=== PATIENT | male | born 1995 | race African-American/Black ===

== ENCOUNTER 2020-04-05 10:14 | Inpatient (IN) | payer SELFPAY ==
[2020-04-05] VITALS (24 sets, daily range): BP systolic 100–132; BP diastolic 39–95; PULSE 109–146; RESP 22–59; TEMP 36.8–37.2; O2SAT 90–96; BMI 22.4
--- NOTE | ~2020-04-05 | XR_ITS ---
EXAMINATION: XR chest 1V portable DATE: 04/06/2020 06:27 INDICATION: Left pneumothorax. TECHNIQUE: A single frontal view of the chest was obtained. COMPARISON: Chest single view 04/05/2020 FINDINGS: There are airspace opacities in right lower lung zone, consistent with pneumonia. No pleura l effusion or pneumothorax. A left-sided chest tube is noted. Pneumomediastinum is noted. The heart s ize is normal. IMPRESSION: 1. No pneumothorax. Left-sided chest tube in expected position. 2. Stable pneumonia in right lower lung zone. 3. Persistent pneumomediastinum. Reviewed, dictated and finalized at location B. RINTENDENT STEVEDORING
--- NOTE | ~2020-04-05 | CT_ITS ---
EXAMINATION: CT brain wo con DATE: 04/05/2020 13:24 INDICATION: Altered mental status. TECHNIQUE: Computed tomography (CT) of the head was performed without intravenous contrast. The mA wa s adjusted according to patient size. Iterative reconstruction technique was employed. The dose-lengt h product was 605.33 mGy-cm. COMPARISON: None FINDINGS: There is no intracranial hemorrhage, acute infarction, or abnormal intracranial mass lesion . The ventricles are normal in size. The paranasal sinuses are clear. The orbits are normal. The mast oid air cells are normal. There is soft tissue gas in the neck and pharynx. IMPRESSION: 1. Normal brain. 2. Soft tissue gas in the neck and pharynx. Reviewed, dictated and finalized at location B. CE CASHIER
--- NOTE | ~2020-04-05 | US_ITS ---
EXAMINATION: US renal BI DATE: 04/06/2020 08:59 INDICATION: Acute kidney injury. TECHNIQUE: Multiple ultrasound grayscale images of the kidneys were obtained. COMPARISON: Chest CT 04/05/2020 FINDINGS: The right kidney measures 10.3 x 4.5 x 5.1 cm. The left kidney measures 11.3 x 5.0 x 4.6 cm. The kidn eys demonstrate increased parenchymal echogenicity. There is no hydronephrosis. The bladder is normal . IMPRESSION: 1. Normal kidney sizes. No hydronephrosis. 2. Increased renal parenchymal echogenicity, consistent with nonspecific nephropathy. Reviewed, dictated and finalized at location B. ELLATION CLERK IMPRESSION: 1. Normal kidney sizes. No hydronephrosis. 2. Increased renal parenchymal echogenicity, consistent with nonspecific nephro joie.
--- NOTE | ~2020-04-05 | CT_ITS ---
EXAMINATION:CT chest wo con DATE: 04/05/2020 13:25 INDICATION: Shortness of breath. TECHNIQUE: Computed tomography (CT) of the chest was performed without intravenous contrast. Automate d exposure control and iterative reconstruction technique were employed. The dose-length product (DLP ) was 218.07 mGy-cm. COMPARISON: None. FINDINGS: There are tree-in-bud opacities and centrilobular nodules in all right lung lobes. There ar e also airspace opacities in right middle lobe and right lower lobe. These findings are consistent wi th pneumonia. There is a small left pneumothorax. Pneumomediastinum is noted. There is extension of s oft tissue gas into the neck and epidural space and posterior right chest wall. There is flattening o f the right ventricle of the heart. No pericardial effusion. The bones are unremarkable. IMPRESSION: 1. Small left pneumothorax. 2. Pneumomediastinum. 3. Flattening of right ventricle of the heart suggesting tension from the pneumothorax and pneumomedi astinum. 4. Right lung pneumonia. 5. I discussed this case with Dr. Layton. Reviewed, dictated and finalized at location B. WELDER APPRENTICE IMPRESSION: 1. Small left pneumothorax. 2. Pneumomediastinum. 3. Flattening of right ventricle of the heart suggesting tension from the pneum othorax and pneumomediastinum. 4. Right lung pneumonia. 5. I discussed this case with Dr. Layton.
--- NOTE | ~2020-04-05 | XR_ITS ---
EXAMINATION: XR chest 1V portable DATE: 04/07/2020 02:56 INDICATION: Difficulty breathing TECHNIQUE: frontal view of the chest was obtained. COMPARISON: Chest radiograph dated 04/06/2020 FINDINGS: Apically directed left chest tube projects over the lateral left lung. No pneumothorax. Minimal pneum omediastinum at the aortic arch, minimal soft tissue gas at the neck and small amount of pneumoperito neum below the left hemidiaphragm. Progression of airspace opacities in the right lower lung zone con sistent with pneumonia. Likely small right pleural effusion. The cardiomediastinal silhouette is norm al. IMPRESSION: 1. Increasing opacities in the right lower lung zone consistent with pneumonia. 2. Unchanged left chest tube with no residual pneumothorax. 3. Small amount of pneumoperitoneum and minimal soft tissue gas in the mediastinum and neck likely re lated to the prior pneumothorax. Reviewed, dictated and finalized at location A. MO TENDER IMPRESSION: 1. Increasing opacities in the right lower lung zone consistent with pneumonia. 2. Unchanged left chest tube with no residual pneumothorax. 3. Small amount of pneumoperitoneum and minimal soft tissue gas in the mediasti num and neck likely related to the prior pneumothorax.
--- NOTE | ~2020-04-05 | XR_ITS ---
EXAMINATION: XR chest-chest tube insert/pos DATE: 04/05/2020 15:04 INDICATION: Left pneumothorax status post chest tube placement. TECHNIQUE: A single frontal view of the chest was obtained. COMPARISON: Chest CT 04/05/2020 FINDINGS: There are airspace opacities and nodules in right mid and lower lung zones, consistent with pneumonia. There is a small left pneumothorax. There is a left-sided chest tube in expected position . No pleural effusion. The heart size is normal. Pneumomediastinum is noted. IMPRESSION: 1. Small left pneumothorax with left-sided chest tube in expected position. 2. Pneumomediastinum. 3. Airspace opacities and nodules in right mid and lower lung zones, consistent with pneumonia. Reviewed, dictated and finalized at location B. CTOR OF MATERIALS MANAGEMENT
--- NOTE | ~2020-04-05 | XR_ITS ---
EXAMINATION: XR chest 2V DATE: 04/07/2020 09:02 INDICATION: Left pneumothorax TECHNIQUE: frontal and lateral views of the chest were obtained. COMPARISON: Chest radiograph dated 04/06/2020 FINDINGS: Again seen is apically directed chest tube projecting over the lateral left lung. No residual pneumot horax. There is a very minimal amount of pneumomediastinum at the aortic arch, minimal soft tissue ga s at the left neck and a small amount of pneumoperitoneum below the diaphragm. Patchy airspace opacit ies at the right lower lung zone consistent with pneumonia. No pleural effusion or right-sided pneumo thorax. Cardiomediastinal silhouette is normal. IMPRESSION: 1. Opacities in the right lower lung zone consistent with pneumonia. 2. No residual left pneumothorax with left chest tube in unchanged position. 3. Small amount of pneumomediastinum, soft tissue gas at the neck and small amount of pneumoperitoneu m, all likely related to the earlier left pneumothorax. Reviewed, dictated and finalized at location A. ALE SECURITY OFFICER IMPRESSION: 1. Opacities in the right lower lung zone consistent with pneumonia. 2. No residual left pneumothorax with left chest tube in unchanged position. 3. Small amount of pneumomediastinum, soft tissue gas at the neck and small himanshu unt of pneumoperitoneum, all likely related to the earlier left pneumothorax.
--- NOTE | 2020-04-05 10:21 | ECG_ITS ---
Measurements Intervals [place] Rate: 141 P: 76 MS: 96 QRS: 66 QRSD: 75 T: 17 QT: 328 QTc: 503 Interpretive Statements SINUS TACHYCARDIA WITH SHORT MS INTERVAL, POSSIBLE ATRIAL FLUTTER ST-T WAVE ABNORMALITY IN INFERIOR LEADS- CONSIDER ISCHEMIA ABNORMAL ECG Electronically Signed On 04-05-2020 10:38:48 HAULING CONTRACTOR by Joao Rg D.O.
--- NOTE | 2020-04-05 10:27 | ED.GENADULT ---
HPI - General Adult General Chief complaint: Unspecified Stated complaint: withdrawals Time Seen by Provider: 04/05/20 10:21 Source: patient Mode of arrival: ambulatory Limitations: no limitations History of Present Illness HPI narrative: Patient is a 24-year-old male brought in from residential due to nausea vomiting and not feeling well . Patient is a very poor historian due to being uncooperative. Related Data Home Medications Medication Instructions Recorded Confirmed No Home Medications 04/05/20 04/05/20 Allergies Allergy/AdvReac Type Severity Reaction Status Date / Time No Known Allergies Allergy Verified 04/05/20 10:29 Review of Systems Review of Systems: All systems reviewed & are unremarkable except as noted in HPI and below ROS unobtainable: Yes other (Unable to obtain due to patient being uncooperative) Exam Const: General: acute distress moderate and ill appearing Orientation/consciousness: oriented to person Limitations: other limitations (Uncooperative) HENMT: Head: normal to inspection, normocephalic and atraumatic Ears: hearing grossly normal bilaterally, TM normal on the right and TM normal on the left General nose exam: Normal external nose present, Normal nares present and No nasal discharge present Face and sinus: normal facial exam Mouth: Yes Normal oral and palatal mucosa present, Yes lip normal, Yes tongue normal and Yes oropharynx normal Throat: posterior oropharynx normal, tonsils normal and uvula midline Eyes: General: appearance normal, both eyes and all related structures Pupils: Equal, round and reactive pupils present EOM: EOMs intact bilaterally Neck: Neck: normal visual inspection, full ROM, no lymphadenopathy and no meningeal signs Chest: Chest palpation & inspection: normal inspection of the chest Resp: Effort & Inspection: respiratory distress (Moderate) and tachypneic Auscultation: no crackles, rales, no rhonchi and no wheezes Cardio: Rhythm: regular rhythm GI: Inspection: normal to inspection GI Palp: No abdominal tenderness, Yes Soft to palpation, No Tenderness to palpation present (GI), No Guarding due to palpation present (GI), No Rigid due to palpation and No Rebound tenderness present Auscultation: normal bowel sounds : General: Yes no CVA tenderness Back/Spine/Pelvis: Back: no CVA tenderness Skin: General skin exam: normal color, no rashes or lesions noted, elasticity normal and turgor normal Neuro: General: tone normal, moves all extremities and no meningeal signs Cranial nerves: Yes Equal, round and reactive pupils present Speech: No Abnormal speech present Sensory Exam: No Sensory deficit (Neuro) Other: Unable to fully assess a full neuro exam patient's not being cooperative Extrem: General: normal to inspection, full ROM and capillary refill normal Psych: Appearance: poorly kempt and other Attitude: Refuses to answer (attititude/behavior) Course Course Emergency Course: Ordered for lactic acid blood cultures, patient refusing to be stuck again. Patient refused lab draw. After chest tube looks place at 2:30 PM patient reexamined at 3 PM states that he is feeling better Vital Signs Vital signs: Vital Signs Temperature 36.8 C 04/05/20 10:15 Pulse Rate 140 H 04/05/20 10:15 Respiratory Rate 40 H 04/05/20 10:15 Blood Pressure 109/81 04/05/20 10:15 Temperature 36.8 C 04/05/20 10:15 Pulse Rate 140 H 04/05/20 10:15 Respiratory Rate 40 H 04/05/20 10:15 Blood Pressure 109/81 04/05/20 10:15 Procedures Chest Tube Chest Tube 1: Chest Tube Date: 04/05/20 Chest Tube Time: 15:05 Chest Tube Location: left, anterior axillary line and fifth interspace Tube Type: quik thal Chest Tube Prep: Yes betadine prep Anesthetic: lidocaine 1% Amount of anesthesia used (mL): 8 Procedure: seldinger technique Post Procedure: sutured to skin, sterile dressing applied and connected to [facility] V
[2020-04-05] MEDS: LACTATED RINGERS 1,000 ML 999 ML IV CONT (10:40)
[2020-04-05] MEDS: ONDANSETRON INJ 4 MG/2 ML VIAL IV PUSH (10:41)
[2020-04-05] MEDS: SODIUM CHLORIDE 0.9% IV 1,000 ML 999 ML IV CONT ×3 (10:43→10:44)
[2020-04-05 10:53] LABS: Basophils Absolute Auto 0.1 K/mm3 (0.0-0.1); Basophils Percent Auto 0.4 % (0.2-1.2); Eosinophils Absolute Auto 0.2 K/mm3 (0-0.3); Eosinophils Percent Auto 1.4 % (0-4.4); Hematocrit 58.1 % (42.0-52.0); Immature Granulocyte Absolute 0.08 K/mm3 (0.00-0.031); Immature Granulocyte Percent A 0.5 % (0-0.5); Lymphocytes Absolute Auto 1.94 K/mm3 (0.9-3.2); Lymphocytes Percent Auto 11.5 % (18.3-44.2); Mean Corpuscular HGB Conc 32.7 g/dl (32-36); Mean Corpuscular Hemoglobin 30.9 pg (26-34); Mean Corpuscular Volume 94.5 fl (80-100); Mean Platelet Volume 11.2 fl (7.4-10.4); Monocytes Absolute Auto 1.7 K/mm3 (0.1-0.6); Monocytes Percent Auto 10.1 % (2.6-8.5); Neutrophils Absolute Auto 12.9 K/mm3 (1.3-6.7); Neutrophils Percent Auto 76.1 % (45.5-73.1); Platelet Count Result 384 k/mm3 (150-375); Red Blood Count 6.15 M/mm3 (4.6-6.20); White Blood Count 16.9 K/mm3 (4.5-10.0)
[2020-04-05 11:10] LABS: Alanine Aminotransferase 40 U/L (4-50); Albumin Level 4.9 g/dL (3.5-5.1); Alkaline Phosphatase 70 U/L (38-126); Anion Gap 23 mmol/L (8-16); Aspartate Amino Transferase 42 U/L (17-59); Bilirubin,Total 1.3 mg/dL (0.2-1.3); Blood Urea Nitrogen > 120 mg/dL (9-20); Calcium 9.8 mg/dL (8.4-10.2); Carbon Dioxide 25 mmol/L (22-30); Chloride 113 mmol/L (98-107); Estimated CRCL calculation 23 ml/min; Estimated Glomerular Filt Rate 22; Glucose 204 mg/dL (75-110); Potassium 4.4 mmol/L (3.4-5.0); Sodium 161 mmol/L (137-145)
[2020-04-05 11:15] LABS: CRP 2.3 mg/dL (<1.0)
[2020-04-05 11:32] LABS: Troponin I 0.236 ng/mL (0.000-0.034)
[2020-04-05 11:43] LABS: Base Excess ABG 0.3 mEq/l (+/-2.0); Carboxyhemoglobin 0.5 % THb (0-2.0); HCO3 ABG 22.8 mEq/l (22.0-26.0); Oxygen Saturation ABG 93.6 % (95.0-100.0); PCO2 ABG 33.4 mmHg (35.0-45.0); Total Hemoglobin 16.9 g/dL (12.0-18.0); pH ABG 7.452 (7.350-7.450)
[2020-04-05 11:44] LABS: Fractional Inspired Oxygen 21 %; Methemoglobin ABG 0.3 %THb (0-1.5); Modified Allen's Test Pass; Oxyhemoglobin 90.7 % THb (90.0-100.0); Reduced Hemoglobin 8.5 %THb (0-5.0); Site Drawn RIGHT RADIAL
--- NOTE | 2020-04-05 12:38 | PC.NURSE ---
Pt refusing to let this RN attempt to draw blood at this time.
--- NOTE | 2020-04-05 12:39 | PC.NURSE ---
Dr. Layton aware of pt refusal
[2020-04-05 13:12] LABS: Alveolar/Arterial O2 Gradient 45.7 mmHg; Oxygen Content ABG 21.5 %vol (16.0-22.0); PO2 FiO2 Ratio Arterial Blood 3.05 %
[2020-04-05] MEDS: LORazepam INJ (*CRX) 2 MG/ML VIAL 1 MG IV PUSH (14:19)
[2020-04-05] MEDS: HYDROmorphone HCL INJ (*CRX) 1 MG/ML SYR IV PUSH (14:20)
[2020-04-05] MEDS: HYDROmorphone HCL INJ (*CRX) 1 MG/ML SYR 0.5 MG IV PUSH (16:06)
--- NOTE | 2020-04-05 16:15 | PC.NURSE ---
pt/ptt and lactic obtained and sent.
[2020-04-05 16:37] LABS: INR 1.2; Partial Thromboplastin Time 26.2 SECONDS (22.3-36.8); Prothrombin Time 16.2 Seconds (11.1-14.7)
[2020-04-05 16:38] LABS: Lactic Acid Reflex 2.1 mmol/L (0.7-2.1)
--- NOTE | 2020-04-05 17:27 | ADMGEN ---
This patient, Andrew Maravilla, was admitted to Intensive Care Unit-2. Patient/family oriented to hospital policies and general routines including ID bracelet, bed and alarms, visiting hours, pain management, procedures, bathroom and other care routines, personal items, smoking policy, room service/diet, and visiting hours. Information on how to activate the Rapid Response Team has been discussed. Patient/Family are encouraged to report perceived risks to care and to ask questions if they do not understand what they are told or what they should do.
[2020-04-05] MEDS: LACTATED RINGERS 1,000 ML 150 ML IV CONT (17:45)
--- NOTE | 2020-04-05 18:06 | PC.NURSE ---
Patient ok for mother to be updated. Spoke with mother about plan of care. Aware of visiting policy and unit phone number.
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
[2020-04-05 19:25] LABS: Reflex Lactic Acid Yes or No Add Lactic
[2020-04-05 20:53] LABS: Anion Gap 13 mmol/L (8-16); Blood Urea Nitrogen 94 mg/dL (9-20); Calcium 8.4 mg/dL (8.4-10.2); Carbon Dioxide 28 mmol/L (22-30); Chloride 116 mmol/L (98-107); Estimated CRCL calculation 31 ml/min; Estimated Glomerular Filt Rate 37; Glucose 116 mg/dL (75-110); Potassium 4.2 mmol/L (3.4-5.0); Sodium 157 mmol/L (137-145)
[2020-04-05 20:56] LABS: Albumin Level 4.2 g/dL (3.5-5.1); Alkaline Phosphatase 50 U/L (38-126); Anion Gap 12 mmol/L (8-16); Aspartate Amino Transferase 41 U/L (17-59); Bilirubin,Total 1.1 mg/dL (0.2-1.3); Blood Urea Nitrogen 93 mg/dL (9-20); CRP 4.9 mg/dL (<1.0); Calcium 8.3 mg/dL (8.4-10.2); Carbon Dioxide 27 mmol/L (22-30); Chloride 117 mmol/L (98-107); Creatine Kinase 1133 U/L (55-170); Estimated CRCL calculation 31 ml/min; Estimated Glomerular Filt Rate 37; Glucose 115 mg/dL (75-110); Magnesium 3.8 mg/dL (1.6-2.3); Phosphorus 4.4 mg/dL (2.5-4.5); Potassium 4.2 mmol/L (3.4-5.0); Sodium 156 mmol/L (137-145)
[2020-04-05 21:01] LABS: Alanine Aminotransferase 32 U/L (4-50); Complement C3 123 mg/dL (88-165)
[2020-04-05] MEDS: IPRATROPIUM BR 0.02% INH SOLN 0.5 MG/2.5 ML VIAL INHALATION (21:12)
[2020-04-05 21:18] LABS: Erythrocyte Sedimentation Rate 27 mm/hr (0-20)
[2020-04-05 21:32] LABS: HIV 1/2 Ab P24 Ag Result Negative (Negative)
[2020-04-05 22:34] LABS: Hepatitis B Surface Antigen Negative (Negative)
[2020-04-05 22:39] LABS: Hepatitis B Core IgM Result Negative (Negative)
[2020-04-05 22:52] LABS: Hepatitis B Surface Anti Res Negative; Hepatitis C Virus Antibody Negative (Negative)
[2020-04-06] VITALS (16 sets, daily range): BP systolic 122–141; BP diastolic 55–88; PULSE 70–108; RESP 20–40; TEMP 36.8–37.4; O2SAT 97–100; BMI 22.4
--- NOTE | 2020-04-06 | ECHO_ITS ---
Patient Info Name: Andrew Maravilla Age: 24 years : 1995 Gender: Male Ht: 62 in Wt: 123 lbs BSA: 1.57 m2 HR: 90 bpm BP: 124 / 87 mmHg Heart Rhythm: Sinus Rhythm Technical Quality: Good Exam Date: 04/06/2020 12:01 PM Exam Location: [facility] Pul[facility] Patient Status: Inpatient Admit Date: 04/05/2020 Staff Ordering Physician: Khris Campos MD Public Safety Officer: Tahir Valentin RDCS Attending Provider: Khris Campos MD Exam Type: CA echo doppler color flow Study Info Indications I47.2 - Ventricular tachycardia Complete two-dimensional, color flow and Doppler transthoracic echocardiogram is performed. History/Risk Factors Right pneumothorax; tachycardia, fentanyl withdrawal, elevated trops. Summary 1. Complete two-dimensional, color flow and Doppler transthoracic echocardiogram is performed. 2. Left ventricular chamber size, wall thickness, systolic and diastolic function are normal with no regional wall motion abnormalities with an estimated ejection fraction of >70%. 3. No significant valve disease. 4. Normal sinus rhythm. Left Ventricle Left ventricular chamber size, wall thickness, systolic and diastolic function are normal with no regional wall motion abnormalities with an estimated ejection fraction of >70%. Left ventricular chamber dimension is normal. Left ventricular systolic function is hyperdynamic, estimated at >70%. There is no increased left ventricular wall thickness. Left ventricular septal wall motion is normal. The left ventricular diastolic function is normal. Right Ventricle Right ventricular chamber dimension is normal. Right ventricular systolic function is normal. Left Atria Left atrial chamber dimension is normal. Right Atria Right atrial chamber dimension is normal. Aortic Valve The aortic valve is trileaflet. There is no aortic valve sclerosis. There is no aortic valve stenosis. There is no aortic valve regurgitation. Pulmonic Valve The pulmonic valve is normal. There is no pulmonic valve stenosis. There is no pulmonic regurgitation. Mitral Valve The mitral valve has normal leaflets. There is no mitral valve stenosis. There is trace mitral valve regurgitation. Tricuspid Valve The tricuspid valve leaflets are normal. There is no significant tricuspid valve stenosis. There is trace tricuspid valve regurgitation. No pulmonary hypertension, estimated pulmonary arterial systolic pressure is 38 mmHg. Pericardium/Pleural The pericardium appears normal. There is no pericardial effusion. Inferior Vena Cava Normal inferior vena cava with >50% collapse upon inspiration consistent with Empty right atrial pressure, 5 mmHg. Aorta The aortic root size at the sinus of Valsalva is normal. The prox ascending aorta size is normal. Left Ventricular Outflow Tract Name Value Normal LVOT 2D LVOT Diameter 2.1 cm LVOT Doppler LVOT Peak Gradient 12 mmHg LVOT Mean Gradient 6 mmHg LVOT VTI 24 cm LVOT VTI/AV VTI Ratio 0.8
[2020-04-06] MEDS: IPRATROPIUM BR 0.02% INH SOLN 0.5 MG/2.5 ML VIAL INHALATION ×4 (01:30→20:10)
[2020-04-06 04:37] LABS: Basophils Percent Auto 0.1 % (0.2-1.2); Hematocrit 39.6 % (42.0-52.0); Immature Granulocyte Absolute 0.04 K/mm3 (0.00-0.031); Immature Granulocyte Percent A 0.3 % (0-0.5); Lymphocytes Absolute Auto 2.26 K/mm3 (0.9-3.2); Mean Corpuscular HGB Conc 32.8 g/dl (32-36); Mean Corpuscular Hemoglobin 30.2 pg (26-34); Mean Corpuscular Volume 92.1 fl (80-100); Mean Platelet Volume 10.9 fl (7.4-10.4); Monocytes Absolute Auto 1.4 K/mm3 (0.1-0.6); Neutrophils Absolute Auto 10.4 K/mm3 (1.3-6.7); Neutrophils Percent Auto 73.6 % (45.5-73.1); Platelet Count Result 253 k/mm3 (150-375); Red Cell Distribution Width 13.5 % (11.5-14.5); White Blood Count 14.1 K/mm3 (4.5-10.0)
[2020-04-06 04:57] LABS: Lactic Acid Reflex 1.3 mmol/L (0.7-2.1)
[2020-04-06 05:02] LABS: Alanine Aminotransferase 25 U/L (4-50); Albumin Level 3.4 g/dL (3.5-5.1); Alkaline Phosphatase 48 U/L (38-126); Anion Gap 8 mmol/L (8-16); Aspartate Amino Transferase 39 U/L (17-59); Bilirubin,Total 0.9 mg/dL (0.2-1.3); Blood Urea Nitrogen 65 mg/dL (9-20); Calcium 7.9 mg/dL (8.4-10.2); Carbon Dioxide 29 mmol/L (22-30); Chloride 112 mmol/L (98-107); Estimated CRCL calculation 40 ml/min; Estimated Glomerular Filt Rate 50; Glucose 123 mg/dL (75-110); Magnesium 3.3 mg/dL (1.6-2.3); Potassium 3.6 mmol/L (3.4-5.0); Sodium 149 mmol/L (137-145)
[2020-04-06] MEDS: SODIUM CHLORIDE 0.9% IV 1,000 ML 150 ML IV CONT (06:57)
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
--- NOTE | 2020-04-06 10:49 | ECG_ITS ---
Measurements Intervals [place] Rate: 99 P: 63 HI: 108 QRS: 79 QRSD: 85 T: -78 QT: 414 QTc: 532 Interpretive Statements SINUS RHYTHM WITH SHORT HI INTERVAL ST-T WAVE ABNORMALITY IN ANT/INF LEADS- CONSIDER ISCHEMIA ABNORMAL ECG Electronically Signed On 04-06-2020 13:15:59 NITRIC ACID CONCENTRATOR OPERATOR by Joao Rg D.O.
[2020-04-06] MEDS: SODIUM CHLORIDE 0.9% IV 1,000 ML 100 ML IV CONT ×2 (10:51→17:41)
--- NOTE | 2020-04-06 10:57 | PM.CNGS ---
Assessment and Plan Assessment and plan (1) Pneumothorax on left: Code(s): J93.9 - Pneumothorax, unspecified Status: Acute Assessment and Plan: Small left pneumothorax noted on CT chest on admission. CT also suggested evidence for tension pneumothorax. Chest tube placed in the ER and was put to wall suction. Repeat chest x-ray done today on wall suction, which showed no pneumothorax with chest tube in position. We will put the chest tube to water seal today and plan to repeat a chest x-ray tomorrow morning. I will also initiate incentive spirometry while awake. The cause of the pneumothorax is unclear, but potentially could be caused by the trauma during his arrest. There is no evidence of fractured ribs on any imaging. I discussed the plan of care with the patient and answered all of his questions. Thank you for allowing us to see the patient in consultation and we will continue to follow along with you. (2) Pneumonia: Qualifiers: Laterality: unspecified laterality Lung location: unspecified part of lung Pneumonia type: due to unspecified organism Qualified Code(s): J18.9 - Pneumonia, unspecified organism Code(s): J18.9 - Pneumonia, unspecified organism Status: Acute Assessment and Plan: Currently on Azithromycin/Ceftriaxone IV for treatment. Leukocytosis noted and improved some today. Management per Hospitalist. (3) Sepsis: Qualifiers: Acute renal failure type: unspecified Sepsis acute organ dysfunction status: with acute organ dysfunction Sepsis type: sepsis due to unspecified organism Severe sepsis acute organ dysfunction type: acute renal failure Severe sepsis shock status: unspecified Qualified Code(s): A41.9 - Sepsis, unspecified organism; R65.20 - Severe sepsis without septic shock; N17.9 - Acute kidney failure, unspecified Code(s): A41.9 - Sepsis, unspecified organism Status: Acute Assessment and Plan: Criteria met with tachycardia, tachypnea, and leukocytosis on admission in the setting of pneumonia. On IV antibiotics. Lactic acid normal. IV fluid resuscitation in ER and currently on IV fluids. Blood cultures pending. (4) Acute renal failure: Qualifiers: Acute renal failure type: unspecified Qualified Code(s): N17.9 - Acute kidney failure, unspecified Code(s): N17.9 - Acute kidney failure, unspecified Status: Acute Assessment and Plan: Creatinine 4.1 on admission. Patient appeared dehydrated. Creatinine improving to 2.0 today. Still receiving IV fluids. Monitor labs. Management per Hospitalist. (5) Hypernatremia: Code(s): E87.0 - Hyperosmolality and hypernatremia Status: Acute Assessment and Plan: Improving, sodium was 161 on admission and down to 149 today. Also could be due to dehydration. Management per Hospitalist. . (6) Narcotic addiction: Code(s): F11.20 - Opioid dependence, uncomplicated Status: Chronic Assessment and Plan: Discussed cessation with patient. He wishes to quit using. (7) Tobacco abuse: Code(s): Z72.0 - Tobacco use Status: Acute Assessment and Plan: Discussed the importance of cessation as well and that continued tobacco abuse can increase risk of recurrence of pneumothorax. Patient states he is going to try to quit smoking. Additional Plan I discussed the patient's case and plan of care with Dr. Roland today. History of Present Illness Consult details Consult date: 04/06/20 Reason for consult: chest tube (Left pneumothorax) Requesting physician: Shadi Layton MD Narrative: This is a 24-year-old male who presented to the emergency department from care home with complaints of nausea and vomiting. The patient apparently had complaints of mild shortness of breath and a productive cough starting about one month ago. He reports that he was using Fentanyl at that time and had not paid any attention to the symptoms because he
[2020-04-06 11:32] LABS: Add Urine Microscopic? YES; Appearance Urine Clear (Clear); Bacteria Urine Trace /hpf; Bilirubin Urine Negative (Negative); Blood Urine Negative (Negative); Color Urine Yellow (Yellow); Glucose Urine UA Negative (Negative); Ketones Urine Negative (Negative); Leukocyte Esterase Ur Negative LEU/UL (Negative); Nitrate Urine Negative (Negative); Protein Urine 1+ mg/dL (Negative); RBC Urine 0-2 /hpf (0-2); Specific Grav Ur 1.024 (1.001-1.035); Squamous Epithelial Cell Urine Rare /hpf (Few); Urobilinogen Urine Negative mg/dL (<2.0); WBC Urine 0-3 /hpf
[2020-04-06] MEDS: polyethylene glycoL 3350 17 GM POWD.PACK PO (13:37)
[2020-04-06] MEDS: ENOXAPARIN 40 MG/0.4 ML SYRINGE SUB-Q (13:37)
--- NOTE | 2020-04-06 18:21 | PM.CNNEP ---
Assessment and Plan Assessment and plan (1) Acute kidney injury: Code(s): N17.9 - Acute kidney failure, unspecified Status: Acute Assessment and Plan: due to severe volume depletion from poor oral/fluid intake improvement in creatinine noted with supportive therapy no critical electrolytes reasonable urine output noted continue supportive therapy (2) Hypernatremia: Code(s): E87.0 - Hyperosmolality and hypernatremia Status: Acute Assessment and Plan: due to severe free water deficit sodium improving with current interventions follow trend of sodium level (3) Pneumothorax on left: Code(s): J93.9 - Pneumothorax, unspecified Status: Acute Assessment and Plan: secondary to trauma chest tube in place Surgery following (4) Pneumonia: Qualifiers: Laterality: unspecified laterality Lung location: unspecified part of lung Pneumonia type: due to unspecified organism Qualified Code(s): J18.9 - Pneumonia, unspecified organism Code(s): J18.9 - Pneumonia, unspecified organism Status: Acute Assessment and Plan: as noted by imaging on antibiotics follow cultures (5) Narcotic addiction: Code(s): F11.20 - Opioid dependence, uncomplicated Status: Chronic Assessment and Plan: long standing issue follow for withdrawal symptoms Will continue to follow. History of Present Illness Reason for Consult Consult date: 04/06/20 Reason for consult: acute renal failure Chief Complaint Chief complaint: Tension pneumothorax, Sepsis, Pneumonia History of Present Illness Narrative: The patient is a 24-year-old male who presented to the [facility] ER from long term with complaints of nausea and vomiting along with shortness of breath. The patient reports about a month ago he had issues and problems with mild shortness of breath associated with a productive cough but at that time, he was using Fentanyl as a recreational drugs and did not really pay any attention to this symptom. More recently, he was arrested about three days ago and was apparently thrown to the ground by the police officers that arrested him. Following this trauma he noted an increase in his shortness of breath associated with left-sided chest pain. Further complicating matters is that since he has been arrested he has been going through withdrawals since he has not been taking his Fentanyl and has not associated increase in nausea vomiting and poor oral intake. given the constellation of symptoms of nausea, vomiting, and worsening shortness of breath, he was brought to the ER for further evaluation. Workup and evaluation in the emergency room demonstrated the patient to have arturo id renal failure with a BUN of greater than 120 and a creatinine of 4.1 associated with a sodium level of 161, leukocytosis, elevated hemoglobin and hematocrit, and a CT scan of the brain that demonstrated soft tissue gas in the neck is and pharynx. Subsequent CT scan of the chest showed a small left pneumothorax, pneumomediastinum with flattening the right ventricle of the heart suggesting tension from the pneumothorax and pneumomediastinum as well as riight lung pneumonia.Given these findings, the ER physician placed a left chest tube with a repeat chest x-ray showing the chest tube in the of position with a small left pneumothorax. The chest tube was placed to wall suction and given the multitude of issues and findings as noted, he was admitted the hospital for further evaluation and therapy. Renal consultation was requested due to his acute kidney injury/acute renal failure associated with hypernatremia. Presumably, his kidney function is normal at baseline and it should be noted that his renal function has improved dramatically since admission with IV fluid resuscitation and improved oral intake. This would argue that his acute kidney injury/ acute renal failure
[2020-04-06] MEDS: MELATONIN 3 MG TABLET PO (20:56)
--- NOTE | 2020-04-06 21:55 | PC.NURSE ---
This patient, Andrew Maravilla, was received from [ICU-2] on 04/06/20 at 2150. Patient/family oriented to unit policies and routines
[2020-04-07] MEDS: SODIUM CHLORIDE 0.9% IV 500 ML 999 ML IV CONT ×2 (00:27→02:09)
[2020-04-07 01:00] VITALS: BP 107/40; PULSE 92; RESP 18; TEMP 36.8; O2SAT 100
[2020-04-07 02:00] VITALS: BP 133/70; PULSE 98; RESP 20; TEMP 37.2; O2SAT 100
[2020-04-07] MEDS: LORazepam INJ (*CRX) 2 MG/ML VIAL 0.5 MG IV PUSH (02:08)
--- NOTE | 2020-04-07 02:09 | PC.NURSE ---
Pt began showing worsening signs of opioid withdrawal around midnight. C/O worsening stomach cramps, diaphoretic, tremors, hot/cold flashes. Dr Curry notified of pt condition. Pt BP too soft for clonidine at this time, x2 500ml NS bolus ordered and one time dose of 0.5mg ativan ordered. Will re-evaluate BP after 2nd bolus admin and notify MD.
[2020-04-07] MEDS: IPRATROPIUM BR 0.02% INH SOLN 0.5 MG/2.5 ML VIAL INHALATION ×2 (02:50→09:42)
[2020-04-07 02:53] VITALS: PULSE 83; RESP 22
[2020-04-07] MEDS: cloNIDine HCL 0.1 MG TABLET PO ×2 (03:28→04:26)
--- NOTE | 2020-04-07 04:23 | PM.EVENT ---
Event Note Event Note Event Note: Called by nursing staff to assess this 24 year old male secondary to withdrawal symptoms. The patient has been very shaky and I have given him a dose of ativan and clonidine earlier. At this point he has verbalized to his nurse that he wishes to sign out AGAINST MEDICAL ADVICE and go home and use drugs. On my arrival to bedside I have discussed with the patient in detail the dangers of him signing out of the hospital and how he would best stop using drugs. I have offered to give him more ativan for this anxiety and clonidine if he wants to stay in the hospital and continue to get help. The patient does have a chest tube in place. The patient is alert and oriented x 3. At this time he is agreeable to stay and allow us to continue to treat him. We will continue to monitor closely overnight.
[2020-04-07] MEDS: LORazepam INJ (*CRX) 2 MG/ML VIAL 1 MG IV PUSH ×2 (04:26→08:42)
[2020-04-07] MEDS: SODIUM CHLORIDE 0.9% IV 1,000 ML 100 ML IV CONT (04:27)
[2020-04-07 04:51] VITALS: BP 121/65; PULSE 94; RESP 20; TEMP 36.9; O2SAT 98
--- NOTE | 2020-04-07 04:51 | PC.NURSE ---
0240 pt had episode of difficulty breathing. Chest Xray confirmed chest tube in place with mildly worsened right lower lobe PNA. Pt stated improvement of dyspnea following breathing treatment. Dr Curry notified of patients difficulty breathing as well as patients improved blood pressure. One time dose of clonidine given at 0328. Around 0400 patient began to become emotional and aggressive stating I can't do this anymore, I'm leaving . Patient was reassured that this feeling of withdrawal is only temporary and he was progressing well. Dr Curry and Dr Moe were both notified of intention to leave AMA. Dr Moe ordered that patient was not to leave AMA under any circumstance and to receive orders for narcotics (if absolutely necessary) from hospitalist to keep patient from leaving. Dr Curry notified of Dr Moe's orders and at this time came to floor to personally assess situation. Orders were received for 1mg ativan and 2nd dose of 0.1mg clonidine. Patient much calmer, appeared to be resting comfortably 20 min following admin of ativan.
[2020-04-07 07:01] LABS: Basophils Percent Auto 0.2 % (0.2-1.2); Hematocrit 37.9 % (42.0-52.0); Hemoglobin 12.6 g/dL (14.0-18.0); Immature Granulocyte Absolute 0.09 K/mm3 (0.00-0.031); Immature Granulocyte Percent A 0.6 % (0-0.5); Lymphocytes Absolute Auto 1.15 K/mm3 (0.9-3.2); Lymphocytes Percent Auto 7.3 % (18.3-44.2); Mean Corpuscular HGB Conc 33.2 g/dl (32-36); Mean Corpuscular Hemoglobin 30.1 pg (26-34); Mean Corpuscular Volume 90.7 fl (80-100); Mean Platelet Volume 10.6 fl (7.4-10.4); Monocytes Absolute Auto 0.9 K/mm3 (0.1-0.6); Monocytes Percent Auto 5.9 % (2.6-8.5); Neutrophils Absolute Auto 13.5 K/mm3 (1.3-6.7); Platelet Count Result 277 k/mm3 (150-375); Red Blood Count 4.18 M/mm3 (4.6-6.20); Red Cell Distribution Width 12.9 % (11.5-14.5); White Blood Count 15.7 K/mm3 (4.5-10.0)
[2020-04-07 07:09] LABS: Creatine Kinase 672 U/L (55-170)
[2020-04-07 07:12] LABS: Albumin Level 3.1 g/dL (3.5-5.1); Anion Gap 7 mmol/L (8-16); Blood Urea Nitrogen 19 mg/dL (9-20); Calcium 8.1 mg/dL (8.4-10.2); Carbon Dioxide 26 mmol/L (22-30); Chloride 113 mmol/L (98-107); Estimated CRCL calculation 65 ml/min; Estimated Glomerular Filt Rate > 60; Glucose 144 mg/dL (75-110); Magnesium 2.5 mg/dL (1.6-2.3); Phosphorus 2.5 mg/dL (2.5-4.5); Potassium 3.4 mmol/L (3.4-5.0); Sodium 146 mmol/L (137-145)
--- NOTE | 2020-04-07 08:40 | PC.NURSE ---
Dr Campos notified of pt restless, diaphoretic, and c/o abd pain. New orders received
[2020-04-07] MEDS: ENOXAPARIN 40 MG/0.4 ML SYRINGE SUB-Q (08:53)
[2020-04-07 09:42] VITALS: PULSE 90; RESP 20; O2SAT 97
[2020-04-07 09:52] VITALS: PULSE 88; RESP 20
--- NOTE | 2020-04-07 10:21 | PM.PNGS ---
Progress Note: A&P Assessment and Plan (1) Pneumothorax on left: Code(s): J93.9 - Pneumothorax, unspecified Status: Acute Assessment and Plan: Patient extremely agitated/anxious today and appears to be going through withdrawal. Patient threatening to pull the chest tube out on his own. He has multiple people in his room who are physically trying to keep him from pulling the chest tube out. Chest x-ray this morning on water seal showed no pneumothorax and chest tube in position. I attempted to clamp the chest tube and tell the patient that we would wait 2 hours and get a repeat chest x-ray before pulling the chest tube. He refused and again tried to pull the chest tube while I was at the bedside. I spoke again with Dr. Roland about removing the chest tube. I then discussed the risk of pulling the tube too early with the patient and the risk of recurrence. He verbalized understanding and still was wishing to have the chest tube removed. He agreed that if I removed the chest tube now, that he would stay for one hour only to get a repeat chest x-ray. I then removed the chest tube at the bedside and applied an occlusive/sterile dressing. Will repeat chest x-ray in 1 hour from removal and if this shows no pneumothorax, then it is okay from a surgical standpoint to discharge the patient. I discussed signs of recurrent pneumothorax with the patient and that he should present to the nearest ER if they occur. Patient verbalized understanding. (2) Pneumonia: Qualifiers: Laterality: unspecified laterality Lung location: unspecified part of lung Pneumonia type: due to unspecified organism Qualified Code(s): J18.9 - Pneumonia, unspecified organism Code(s): J18.9 - Pneumonia, unspecified organism Status: Acute Assessment and Plan: Currently on Azithromycin/Ceftriaxone IV and breathing treatments. Management per Hospitalist. (3) Sepsis: Qualifiers: Acute renal failure type: unspecified Sepsis acute organ dysfunction status: with acute organ dysfunction Sepsis type: sepsis due to unspecified organism Severe sepsis acute organ dysfunction type: acute renal failure Severe sepsis shock status: unspecified Qualified Code(s): A41.9 - Sepsis, unspecified organism; R65.20 - Severe sepsis without septic shock; N17.9 - Acute kidney failure, unspecified Code(s): A41.9 - Sepsis, unspecified organism Status: Acute Assessment and Plan: Secondary to pneumonia. WBC 15,700 today. Continue IV antibiotics. IV fluid resuscitation in ER and currently on IV fluids. Blood cultures NGTD. (4) Acute renal failure: Qualifiers: Acute renal failure type: unspecified Qualified Code(s): N17.9 - Acute kidney failure, unspecified Code(s): N17.9 - Acute kidney failure, unspecified Status: Acute Assessment and Plan: Improving with IV fluid hydration, creatinine normal today. Management per Hospitalist. (5) Hypernatremia: Code(s): E87.0 - Hyperosmolality and hypernatremia Status: Acute Assessment and Plan: Improving with fluids, sodium was 146 today. Management per Hospitalist. . (6) Narcotic addiction: Code(s): F11.20 - Opioid dependence, uncomplicated Status: Chronic Assessment and Plan: Today patient states he lives with his mother and sister in [place]. He states that they have set him up with a rehab facility in [place], [place] when he is discharged. He seems hopeful to stop using. This was on my first visit with the patient prior to his increase in agitation. (7) Tobacco abuse: Code(s): Z72.0 - Tobacco use Status: Acute Additional Plan I discussed the patient's case and plan of care with Dr. Roland today. Subjective Subjective Date/Time Seen: 04/07/20 09:50 Patient reports: diarrhea and shortness of breath Interval history: Patient seen initially at 0950 am - reports feeling symptoms of withdrawal today. He reports
--- NOTE | 2020-04-07 11:31 | PC.NURSE ---
Patient called and requested the nurse to come into the room. When the nurse entered the room the patient stated that his sister was here to pick him up and he was leaving. He was not going to stay for the the chest radiograph that was scheduled at noon he was leaving right then and there. This nurse informed the patient that since they just removed the chest tube they needed to repeat the chest radiograph to make sure that the patient doesn't develop a new pneumothorax or have any other issues going on since the tube was removed. This nurse informed the patient that it was very important that the patient stay not only for the radiograph but also needed to stay for further hospitalization to ensure his safety and health. This nurse informed the patient that leaving AMA was not recommended at this time since he had such a traumatic injury to his chest at this time and it was only a short time since the chest tube was removed and he was downgraded from ICU. This nurse printed off the AMA form and repeatedly stated to the patient the importance of staying in the hospital at this time and receiving the recheck radiograph. The patient stated his sister was here he was signing the AMA form and leaving he wasn't going to stay any longer. The SENIOR ENERGY TRADER stayed with the patient while the patient got dressed and assisted the patient into a wheelchair and took him out to the car.
--- NOTE | 2020-04-07 13:54 | PM.DS ---
DS: Admitting Diagnosis Admitting Diagnosis Admitting Diagnosis: tension pneumothorax,sepsis,pneumonia DS: Discharge Diagnosis Discharge Diagnosis (1) Spontaneous tension pneumothorax: Code(s): J93.0 - Spontaneous tension pneumothorax Status: Acute Assessment and Plan: Patient stated that he was tackled to the ground by the police or patrol park officer with chest pain since then. CT showing small left PTX with pneumomediastinum with evidence of tension. Chest tube placed and was followed by Surgery. Echo essentially normal. Chest tube was able to be removed 04/07. CXR prior to having chest tube removed showed small amount of pneumomediastinum, soft tissue gas at the neck and small amount of pneumoperitoneum, all likely related to the earlier left pneumothorax. Patient did not stay for the repeat CXR after chest tube removed. (2) Acute kidney injury: Code(s): N17.9 - Acute kidney failure, unspecified Status: Acute Assessment and Plan: Cr 2.6 on admission. Sadiqn had not been eating or drinking much recently due to going through withdrawals. With IV fluids, his Cr has improved to 1.2. He also has mild rhabdomyolysis which could have contributed to this. His Renal US showing nephropathy. Autoimmune, ect labs drawn. Nephrology followed along. Hepatitis and HIV labs negative. (3) Narcotic addiction: Code(s): F11.20 - Opioid dependence, uncomplicated Status: Chronic Assessment and Plan: Recovering well and no further withdrawal symptoms. employee benefits coordinator discussed possible rehab (4) Pneumonia: Qualifiers: Laterality: unspecified laterality Lung location: unspecified part of lung Pneumonia type: due to unspecified organism Qualified Code(s): J18.9 - Pneumonia, unspecified organism Code(s): J18.9 - Pneumonia, unspecified organism Status: Acute Assessment and Plan: CT scan showing RLL PNA. No cough or fever. COVID negative. Blood cultures remained negative. Treated with nebulizer treatments and azithromycin/Rocephin. We did send him home with abx. (5) Hypernatremia: Code(s): E87.0 - Hyperosmolality and hypernatremia Status: Acute Assessment and Plan: Na 161 on admission. Most likely due to dehydration. Na down to 146. DS: Summary Hospital Course Reason for hospitalization: 24yo male presents with complaints of chest pain. Please see H&P for details. Hospital Course: Please see above details of hospital course Status at Discharge Cognitive/behavioral status at discharge: PATIENT LEFT AGAINST MEDICAL ADVICE Time Spent with Patient Time attestation: Total time spent providing and/or coordinating discharge services: 34 minutes Time spent: Greater than 30 minutes Exam Narrative: Exam Narrative: AF 98.4 121/65 94 20 98% ra Gen - NARD Chest - Bibasilar rhonchi R>L. Chest tube secured left chest CV - RRR S1/S2 Abd - Soft, ND/NT, +BS Ext - No pedal edema Psych - nml mood and affect Skin - Warm and dry DS: Data Data Completed and Pending Labs on day of discharge: Labs from last 24 hours 04/07/20 04/07/20 04/07/20 06:47 06:47 06:47 WBC 15.7 H RBC 4.18 L Hgb 12.6 L Hct 37.9 L MCV 90.7 MCH 30.1 MCHC 33.2 RDW 12.9 Plt Count 277 MPV 10.6 H Immature Gran % (Auto) 0.6 H Neut % (Auto) 86.0 H Lymph % (Auto) 7.3 L [place] % (Auto) 5.9 Eos % (Auto) 0.0 Baso % (Auto) 0.2 Lymph # (Auto) 1.15 [place] # (Auto) 0.9 H Eos # (Auto) 0.0 Baso # (Auto) 0.0 Abs Immat Gran (auto) 0.09 H Absolute Neuts (auto) 13.5 H Absolute Nucleated RBC 0.0 Nucleated RBC % 0.0 Sodium 146 H Potassium 3.4 Chloride 113 H Carbon Dioxide 26 Anion Gap 7 L BUN 19 D Creatinine 1.20 Estim Creat Clear Calc 65 Estimated GFR > 60 Glucose 144 H Calcium 8.1 L Phosphorus 2.5 Magnesium 2.5 H Total Creatine Kinase 672
--- NOTE | 2020-04-07 17:47 | PC.NURSE ---
Patients mother called stating that the [facility] pharmacy did not have the prescription for the patient. Per mother the prescription was sent to the wrong pharmacy. This nurse called in the antibiotic prescription to the [facility] pharmacy on [facility] per patients mother request.
--- NOTE | 2020-04-07 19:22 | PC.NURSE ---
Patient's family called in regards to the patients medication at the pharmacy that he needs is not covered by insurance and they are asking for a lot of money. This nurse informed the patients family that because the patient signed out AMA most likely medicare will not pay for anything and that could be why the medication is so expensive. Family was under the impression that the patient had been released/discharged. This nurse informed the family that the patient was told it is not recommended at this time to leave the hospital that he needs to stay and continue to receive treatment especially radiographs and much more. The family members also stated that the patient is not breathing well at this time. This nurse informed the family that the patient was diagnosed with right sided pneumonia and had the chest tube in the left side but was unwilling to stay after the chest tube was removed so we do not know if there was any worsening on the left side where the patient had a pneumothorax. This nurse informed the patients family that if he is still struggling to breath he needs to be readmitted to the closest available hospital to them to be admitted and taken care of for probably multiple days in the hospital to ensure that he is actually recovering and doesn't have any worsening of his condition. Per the patients family they were going to take him to the closest hospital and have him reassesed and possibly admitted. This nurse informed the family that the patient signed an AMA form and was informed that his medical decision to leave against medical advice was not recommended and that he needs to be seen at a hospital and continue to receive hospital care. The family of the patient understood and were very appreciative at this time and were going to attempt to take the patient to a hospital.
[2020-04-10 07:02] LABS: Albumin 3.8 g/dL (3.8-4.8); Alpha 1 Globulin 0.5 g/dL (0.2-0.3); Alpha 2 Globulin 1.3 g/dL (0.5-0.9); Beta 1 Globulin 0.4 g/dL (0.4-0.6); Gamma Globulin 1.2 g/dL (0.8-1.7); Protein, Total 7.6 g/dL (6.1-8.1)
[2020-04-10 08:39] LABS: Anti Glomerular Basement Memb <1.0 AI (<1.0)
[2020-04-10 08:55] LABS: SM Antibody <1.0; SM/RNP Antibody <1.0
[2020-04-10 11:22] LABS: ANCA Screen Negative (Negative)
[2020-04-11 15:08] LABS: Anti Streptolysin O Screen <50 IU/mL (<200)
[2020-04-13 12:42] LABS: Complement Total CH50 52 U/mL (31-60)
--- NOTE | 2020-04-18 14:54 | PC.NURSE ---
ALl labs WNL and Dr. Campos aware. GBM ANCA RAJ ASO Cryoglobin DNA(ds) Serum Immon SPEP SM and SMRNP Sterpt DNAse
== END 2020-04-07 11:40 | disposition left against medical advice (07) | DRG 143 ==
LOC: ANHED 15:18 → ANHICU 16:19 → ANH2MED 04-06 21:53
PROVIDERS: Nurse Practitioner; Admitting Provider Internal Medicine; Emergency Provider Emergency Medicine; Visit Provider Internal Medicine
DX: J93.0 Spontaneous tension pneumothorax (principal); F11.23 Opioid dependence with withdrawal; J18.9 Pneumonia, unspecified organism; M62.82 Rhabdomyolysis; N17.9 Acute kidney failure, unspecified; E87.0 Hyperosmolality and hypernatremia; E86.0 Dehydration; F17.210 Nicotine dependence, cigarettes, uncomplicated; F41.9 Anxiety disorder, unspecified
CPT/HCPCS: 32551; 36415; 36600; 70450; 71045; 71046; 71250; 76775; 80048; 80053; 80069; 80076; 81001; 82375; 82550; 82595; 82805; 83050; 83520; 83605; 83735; 83930; 84155; 84165; 84443; 84484; 85025; 85610; 85652; 85730; 86021; 86038; 86060; 86140; 86160; 86162; 86215; 86225; 86235; 86334; 86703; 86705; 86706; 86803; 87040; 87340; 93005; 93306; 94640; 96361; 96365; 96375; 99291; A9270; C1729; G0432; J0131; J0456; J0696; J1170; J1650; J2060; J2405; J3370; J7030; J7040; J7120